=== PATIENT | male | born 1955 | race Caucasian/White ===

== ENCOUNTER → 2016-06-26 | Outpatient (CLI) | payer BC ==
[~2016-06-26] MED LIST: ASPI81TA28 PO; ATOR10TA82 PO; BUPR-79 PO; CHOL1TAB42 PO; CHOL20007 PO; CITA40TA12 PO; COEN100C7 PO; DSWCR TOP; FISHOIL PO; FLAXOIL4 PO; FLUT0.15 NAE; METF1000 PO; NITR1CAP16 PO; OMEG-112 PO; OMEG10007 PO; OXYC7.5T65 PO; PHEN-775 PO; SALI1SPR15 NAE; SITA100T3 PO; TURMERIC PO; saline nasal spray
--- NOTE | 2016-06-26 15:17 | DIAGNOSTIC IMAGING REPORT ---
CT HEAD WITHOUT CONTRAST (CT) CLINICAL HISTORY: Severe headache, paresthesias, dizziness, slurred speech. COMPARISON STUDY: No previous studies for comparison. TECHNIQUE: Axial CT of the brain is performed from the vertex to the skull base. IV contrast was not administered for this examination. CT DOSE: 614.27 mGy.cm FINDINGS: No intra or extra-axial mass lesions are visualized. There is no CT evidence of acute cortical infarction. There is no evidence of midline shift. There is no acute hemorrhage. No calvarial fractures are visualized. There are patchy subtle matter hypodensities likely on a small vessel basis. There is no evidence of pathologic ventricular dilatation. There is no evidence of acute sinusitis. There is a left maxilla sinus retention cyst. There are postsurgical changes present within the sinuses. IMPRESSION: No acute intracranial findings Electronically signed by: Juan Alberto Mayberry M.D. 06/26/2016 3:15 PM Dictated Date/Time: 06/26/2016 3:14 PM
== END | disposition home or self-care (01) ==
LOC: C.CTS 14:53
PROVIDERS: ATTEND Nurse Practitioner Family
DX: R51 Headache (principal); H53.8 Other visual disturbances; R20.2 Paresthesia of skin

== ENCOUNTER → 2016-07-04 | Outpatient (CLI) | payer BC ==
--- NOTE | 2016-07-04 12:06 | DIAGNOSTIC IMAGING REPORT ---
ULTRASOUND KIDNEYS AND BLADDER CLINICAL HISTORY: Hematuria. COMPARISON STUDY: Abdominal ultrasound dated 07/15/2012. TECHNIQUE: Real-time, grayscale, and color flow sonography of the kidneys and bladder is performed. Images are reviewed in the transverse and longitudinal planes. FINDINGS: Kidneys: The kidneys demonstrate minimal cortical thinning and are normal in echotexture. The right kidney measures 12.6 x 6.1 x 4.7 cm and the left kidney measures 13.6 x 6.5 x 6.1 cm. There is no hydronephrosis. Nonobstructing calculi are suggested on the left. There is no sonographic evidence of contour deforming renal mass lesion. No perinephric fluid is identified. Bladder: The prostate gland is enlarged measuring up to 5.5 cm. The bladder is decompressed and grossly unremarkable. Ureteral jets were not seen. Upper abdomen: Survey images of the liver show increased echotexture indicating steatosis. IMPRESSION: 1. There is no hydronephrosis. 2. Nonobstructing left renal calculi are noted. 3. Prostatomegaly. 4. The bladder was decompressed and not well evaluated. 5. Hepatic steatosis. Electronically signed by: Tim Yanez M.D. 07/04/2016 12:05 PM Dictated Date/Time: 07/04/2016 12:03 PM
== END | disposition home or self-care (01) ==
LOC: C.ULTR 11:18
PROVIDERS: ATTEND Nurse Practitioner Family
DX: R31.9 Hematuria, unspecified (principal); R20.0 Anesthesia of skin; N40.0 Benign prostatic hyperplasia without lower urinary tract symptoms; K76.0 Fatty (change of) liver, not elsewhere classified

== ENCOUNTER → 2016-07-28 | Outpatient (CLI) | payer BC ==
--- NOTE | 2016-07-28 16:20 | DIAGNOSTIC IMAGING REPORT ---
KUB HISTORY: Possible left renal stone. COMPARISON: Renal ultrasound 07/04/2016. FINDINGS: The bowel gas pattern is unremarkable. There are no dilated loops of small bowel to suggest an obstruction. The right renal shadow is mostly obscured by overlying bowel gas. However, no definite renal or calculi. No ureteral calculi. No pneumoperitoneum or pneumatosis. Left pelvic calcifications likely represent phleboliths. IMPRESSION: No renal or ureteral stones. Electronically signed by: Ben Beaulieu M.D. 07/28/2016 4:19 PM Dictated Date/Time: 07/28/2016 4:16 PM
== END | disposition home or self-care (01) ==
LOC: C.RAD 15:38
PROVIDERS: ATTEND Urology
DX: N20.0 Calculus of kidney (principal)

== ENCOUNTER → 2016-09-22 | Outpatient (CLI) | payer BC ==
[~2016-09-22] MED LIST changes: -ATOR10TA82 PO; +ATOR10TA88 PO
[2016-09-22 17:21] LABS: BLOOD UREA NITROGEN 16 mg/dl (7-18); BUN/CREATININE RATIO 15.7 (10-20); CREATININE 0.99 mg/dl (0.60-1.40)
[2016-09-23 05:57] LABS: ESTIMATED AVERAGE GLUCOSE 206 mg/dl; HA1C FLAG Normal (Normal)
== END | disposition home or self-care (01) ==
LOC: C.LAB 15:30
PROVIDERS: ATTEND Nurse Practitioner Family
DX: E11.9 Type 2 diabetes mellitus without complications (principal); R31.9 Hematuria, unspecified; N20.0 Calculus of kidney

== ENCOUNTER → 2016-09-23 | Outpatient (CLI) | payer BC ==
[~2016-09-23] MED LIST changes: +OPTIRAY 320 IV PRN
--- NOTE | 2016-09-23 15:15 | DIAGNOSTIC IMAGING REPORT ---
CT ABD/PELVIS COMBO CLINICAL HISTORY: R31.9 hematuria COMPARISON STUDY: None. TECHNIQUE: Unenhanced images were obtained through the abdomen and pelvis. The patient was injected with 50 cc Optiray 320. After 5 minute delay, the patient was rescanned in a dynamic helical fashion during the additional administration of 43 cc of Optiray 320. A dose lowering technique was utilized adhering to the principles of ALARA. CT DOSE: 2217.30 mGycm FINDINGS: Lower chest: There are dependent atelectatic changes. Liver: The contrast-enhanced liver is normal in size, contour, and attenuation. There is no intrahepatic biliary ductal dilatation. The hepatic veins and portal veins are patent. Gallbladder: Unremarkable. Spleen: Normal in size and attenuation. Pancreas: Unremarkable. Adrenal glands: Unremarkable. Kidneys: No renal, ureteral, or bladder calculi are visualized. There is a 7 mm hypodense lower pole left renal lesion, likely representing a cyst. There is a 6 mm mid pole hypodense left renal lesion likely representing a cyst. No solid renal masses are visualized. No collecting system lesions are visualized. There is mild renal sinus lipomatosis. No ureteral lesions are visualized. Bowel: There are no transition zones indicate bowel obstruction. The appendix appears normal. There is no acute diverticulitis. Peritoneum: There is no intraperitoneal free air or abdominal ascites. Vasculature: The abdominal aorta is normal in course and caliber. Adenopathy: None. Pelvic viscera: The prostate is mildly enlarged Skeletal structures: No destructive osseous lesions are seen. IMPRESSION: 1. No renal, ureteral, or bladder calculi identified 2. No solid renal masses identified 3. No collecting system or ureteral lesions identified. Electronically signed by: Juan Alberto Mayberry M.D. 09/23/2016 3:14 PM Dictated Date/Time: 09/23/2016 3:08 PM
== END | disposition home or self-care (01) ==
LOC: C.CTS 14:11
PROVIDERS: ATTEND Nurse Practitioner Adult Health
DX: R31.9 Hematuria, unspecified (principal)

== ENCOUNTER → 2016-09-25 | Outpatient (CLI) | payer BC ==
[~2016-09-25] MED LIST changes: -OPTIRAY 320 IV PRN
[2016-09-25 09:09] LABS: BLOOD UREA NITROGEN 14 mg/dl (7-18); BUN/CREATININE RATIO 14.6 (10-20); CREATININE 0.98 mg/dl (0.60-1.40)
== END | disposition home or self-care (01) ==
LOC: C.LAB 08:19
PROVIDERS: ATTEND Nurse Practitioner Adult Health
DX: N20.0 Calculus of kidney (principal); R31.9 Hematuria, unspecified

== ENCOUNTER 2016-10-30 05:18 | Day surgery (SDC) | payer BC ==
[2016-10-15 09:04] VITALS: BMI 32.0
--- NOTE | 2016-10-15 09:39 | PAT Medication Instructions ---
Service Date Oct 15, 2016. Current Home Medication List Aspirin (Aspirin Ec), 81 MG PO HS Atorvastatin (Lipitor), 10 MG PO HS Bupropion (Wellbutrin Sr), 150 MG PO QAM Cholecalciferol (Vitamin D3), 1 TAB PO BID Citalopram Hydrobromide (Celexa), 40 MG PO HS Coenzyme Q10 (Ubidecarenone) (Coq10), 200 MG PO BID Desonide 0.05% (Desowen 0.05%), 1 APPLN TOP PRN Fish Oil (Lingle-3), 2 CAP PO QPM Fish Oil (Lingle-3), 1 CAP PO QAM Flaxseed (Linseed) (Flax Seed Oil), 30 ML PO BID Fluticasone Propionate (Nasal) (Flonase Allergy Relief), 1 SPRAYS RONALD BID Metformin Hcl (Glucophage), 1,000 MG PO BID Saline (Saline Nasal [place] Infant), 1-2 SPRY RONALD BID Sitagliptin Phosphate (Januvia), 100 MG PO QAM [Turmeric], 1 TAB PO BID Medication Instructions For Your Scheduled Surgery - Check with surgeon for instructions: Aspirin (Aspirin Ec), 81 MG PO HS - Hold the following medications 2 weeks prior to surgery: [Turmeric], 1 TAB PO BID Flaxseed (Linseed) (Flax Seed Oil), 30 ML PO BID Fish Oil (Lingle-3), 2 CAP PO QPM Fish Oil (Lingle-3), 1 CAP PO QAM Coenzyme Q10 (Ubidecarenone) (Coq10), 200 MG PO BID - Hold the following medications 24 hours prior to surgery: Desonide 0.05% (Desowen 0.05%), 1 APPLN TOP PRN - Hold the following medications 48 hours prior to surgery: Metformin Hcl (Glucophage), 1,000 MG PO BID - Hold the following medications the morning of surgery: Sitagliptin Phosphate (Januvia), 100 MG PO QAM Cholecalciferol (Vitamin D3), 1 TAB PO BID - Take the following medications the morning of surgery with a sip of water: Saline (Saline Nasal [place] ), 1-2 SPRY RONALD BID Fluticasone Propionate (Nasal) (Flonase Allergy Relief), 1 SPRAYS RONALD BID Bupropion (Wellbutrin Sr), 150 MG PO QAM - Take the following medications as scheduled the night before surgery: Saline (Saline Nasal [place] ), 1-2 SPRY RONALD BID Fluticasone Propionate (Nasal) (Flonase Allergy Relief), 1 SPRAYS RONALD BID Citalopram Hydrobromide (Celexa), 40 MG PO HS Cholecalciferol (Vitamin D3), 1 TAB PO BID Atorvastatin (Lipitor), 10 MG PO HS If you have any questions please call us at [phone] or [phone] or [phone]
[2016-10-15 10:24] LABS: BASO % 0.8 %; BASO ABS # 0.05 K/uL (0-0.2); COMPLETE YES; EOS % 2.3 %; HEMATOCRIT 40.8 % (42-52); IG% 0.2 %; LYMPH % 45.2 %; LYMPH ABS # 2.92 K/uL (1.2-3.4); MEAN CELL VOLUME 85.5 fL (80-100); MEAN CORPUSCULAR HEMOGLOBIN 28.9 pg (25-34); MEAN CORPUSCULAR HGB CONC 33.8 g/dl (32-36); MEAN PLATELET VOLUME 9.5 fL (7.4-10.4); MONO % 7.9 %; NEUT % 43.6 %; PLATELET COUNT 267 K/uL (130-400); RED BLOOD COUNT 4.77 M/uL (4.7-6.1); WHITE BLOOD COUNT 6.46 K/uL (4.8-10.8)
[2016-10-15 10:25] LABS: URINE APPEARANCE CLEAR (CLEAR); URINE BILIRUBIN NEG (NEG); URINE COLOR YELLOW; URINE NITRITE NEG (NEG); URINE SPECIFIC GRAVITY 1.013 (1.000-1.030); UROBILINOGEN NEG (NEG)
[2016-10-15 10:30] LABS: MANUAL MICROSCOPIC REQUIRED? NO; REVIEW REQ? NO
--- NOTE | 2016-10-15 10:31 | DIAGNOSTIC IMAGING REPORT ---
CHEST PREADMISSION(PA/LAT) HISTORY: 61 years-old Male PAT preadmission exam. No acute chest complaints. COMPARISON: Chest radiograph 07/15/2012 TECHNIQUE: PA and lateral views of the chest FINDINGS: Cardiomediastinal and hilar silhouettes are within normal limits. There is no pneumothorax, pleural effusion or focal airspace consolidation. No overt pulmonary edema. The bones are grossly intact. Multilevel endplate spurring of the thoracic spine. IMPRESSION: No acute cardiopulmonary process. The above report was generated using voice recognition software. It may contain grammatical, syntax or spelling errors. Electronically signed by: Vazquez Dill M.D. 10/15/2016 10:30 AM Dictated Date/Time: 10/15/2016 10:29 AM
[2016-10-15 12:51] LABS: BUN/CREATININE RATIO 13.1 (10-20); CREATININE 0.99 mg/dl (0.60-1.40); POTASSIUM 4.2 mmol/L (3.5-5.1)
[~2016-10-30] VITALS: Ht 180.3 cm; Wt 107.7 kg
[~2016-10-30 05:18] MED LIST changes: -CHOL1TAB42 PO; -NITR1CAP16 PO; -OMEG-112 PO; -OXYC7.5T65 PO; -PHEN-775 PO; -saline nasal spray
[2016-10-30] MEDS ORDERED: saline nasal spray (05:55)
[2016-10-30 05:58] VITALS: BP 136/82; PULSE 66; TEMP 36.7; O2SAT 95; Ht 180.3 cm; Wt 107.7 kg
[2016-10-30] MEDS ORDERED: MITOMYCIN FOR INJ 40 MG in SYRINGE 40 ML IR SCH (06:00)
[2016-10-30] MEDS ORDERED: CEFAZOLIN 2000 MG/60 ML D5W IV SCH (06:00)
[2016-10-30] MEDS ORDERED: LACTATED RINGER'S 1000ML 1,000 ML IV SCH (06:00)
[2016-10-30] MEDS ORDERED: MIDAZOLAM HCL 1 MG/ML 2ML VIAL ONE ×2 (06:35→08:10)
[2016-10-30] MEDS ORDERED: FENTANYL CITRATE INJ 50 MCG/1 ML 2 ML VIAL ONE (06:35)
[2016-10-30] MEDS ORDERED: ONDANSETRON INJ 2 MG/ML 2 ML VIAL ONE (06:36)
[2016-10-30] MEDS ORDERED: PROPOFOL IV EMULSION 10 MG/ML 20 ML VIAL IV ONE ×2 (06:36→07:29)
--- NOTE | 2016-10-30 06:54 | History & Physical Bridge Note ---
H&P Re-Evaluation Bridge Note: I have examined the patient, reviewed the History & Physical and in the interval since the performance of the History & Physical I have noted the following changes of clinical significance: No changes noted
[2016-10-30] MEDS ORDERED: EpHEDrine SULFATE INJ 50 MG/ML AMP IV PRN (07:45)
[2016-10-30] MEDS ORDERED: MEPERIDINE HCL 25 MG/ML CARP IV PRN (07:45)
[2016-10-30] MEDS ORDERED: HYDROmorphone INJ 1 MG/ML SYR IV PRN (07:45)
[2016-10-30] MEDS ORDERED: ATROPINE SULFATE 0.1 MG/ML 5ML SYR IV PRN (07:45)
[2016-10-30] MEDS ORDERED: ONDANSETRON INJ 2 MG/ML 2 ML VIAL IV PRN (07:45)
[2016-10-30] MEDS ORDERED: LABETALOL HCL IV 5 MG/ML 20ML IV PRN (07:45)
[2016-10-30] MEDS ORDERED: OXYC7.5T65 PO (08:02)
[2016-10-30] MEDS ORDERED: PHEN-775 PO (08:02)
[2016-10-30] MEDS ORDERED: NITR1CAP16 PO (08:02)
--- NOTE | 2016-10-30 08:05 | Discharge Instructions ---
Discharge Instructions Date of Service Oct 30, 2016. Admission Reason for Admission: Bladder Cancer Discharge Discharge Diagnosis / Problem: Bladder tumor s/p biopsy / fulguration Discharge Goals Goal(s): Improve disease control, Diagnostic testing, Therapeutic intervention Activity Recommendations Activity Limitations: as noted below Lifting Limitations: no more than 25 pounds, gradually increase as tolerated Exercise/Sports Limitations: rest today, gradually increase as tolerated May Resume Sexual Activity: after one week Shower/Bathe: no limitations Driving or Machine Use: resume 1 day after discharge . Instructions / Follow-Up Instructions / Follow-Up In office as scheduled for pathology discussion Discharge Diet Recommended Diet: Regular Diet (good fluid intake) Procedures Procedures Performed: Cystoscopy, bladder biopsy, roller ball fulgeration, instillation of Mitomycin C Pending Studies Studies pending at discharge: yes List of pending studies: Pathology report Laboratory Results Hemoglobin A1c Test 09/22/16 16:02 Range/Units Estimated Average Glucose 206 mg/dl Hemoglobin A1c 8.8 H 4.5-5.6 % Medical Emergencies . Who to Call and When: Medical Emergencies: If at any time you feel your situation is an emergency, please call 911 immediately. . Non-Emergent Contact Non-Emergency issues call your: Urologist Call Non-Emergent contact if: you have a fever, temperature is above 101, your pain is not controlled, your pain is worsening, your pain is unusual for you, your pain is concerning you, you have any medication questions . . "Provider Documentation" section prepared by Cliff Wheatley. . VTE Core Measure Inpt VTE Proph given/why not?: SCD's [place] Drug Monitoring Program Search Results: patient reviewed within database, no issues identified
--- NOTE | 2016-10-30 08:10 | [facility] Operative Report ---
Operative Report Operative Date Oct 30, 2016. Pre-Operative Diagnosis Bladder lesion Post-Operative Diagnosis Same as preop Procedure(s) Performed Cystoscopy, bladder biopsy, roller ball fulguration, instillation of Mitomycin C Surgeon Dr. Michelle Wheatley Brewery Worker Surgeon(s) NA Estimated Blood Loss 0 ml Findings Area of bladder tumor and abnormal mucosa, ~ 2 x 3 cm on R anterior wall, ~ 11 oclock position near bladder neck, no residual tumor after completion. 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 Please see H&P for further details. He is being brought in today for biopsy, fulguration and instillation of mitomycin-C. Intravenous Ancef was provided for antibiotic coverage due to a questionable history ciprofloxacin allergy. SCDs used for DVT prophylaxis. Description of Procedure Patient was properly identified and brought to the operative suite after identification of appropriate consent in the chart. General anesthesia with laryngeal mask was initiated and patient was prepped and draped in standard fashion for this procedure. Full timeout procedure was followed. 22 Albanian rigid cystoscope was passed into the bladder direct visualization. Some uneven lateral lobe enlargement of the prostate, obstructive was appreciated as noted on office cystoscopy. Inside the bladder at the 11 o'clock position for about 2 3 cm total involvement papillary masses and abnormal vellous mucosa was appreciated. Cold cup biopsies of the papillary lesions was sent as bladder masses. Biopsy was repeated of the abnormal mucosa and sent separately. After this was complete bladder was drained. 26 Albanian resectoscope was introduced using a visual obturator and a rollerball was used to completely fulgurate any areas of borderline or abnormal mucosa. After this was complete no residual areas of abnormality were appreciated. No bladder perforation or injury was noted. Resectoscope was removed and an 18 Albanian Catherine catheter was placed. Mitomycin C was not available the operating room and therefore the catheter was placed to gravity drainage. Mitomycin to be instilled in the every room 2 hours prior to trial of void. Patient tolerated the procedure well without complaints or difficulties or complications. Follow-up care: Patient's provided with a prescription for nitrofurantoin, Percocet and Pyridium. Trial void prior to discharge. Outpatient appointment for pathology discussion is reviewed. Patient to contact our service should he note any fevers, chills, nausea, vomiting or other difficulties in the postoperative period I attest to the content of the Intraoperative Record and any orders documented therein. Any exceptions are noted below.
[2016-10-30] MEDS ORDERED: OXYCODONE/ACETAMINOPHEN 5-325 TAB PO PRN (08:15)
[2016-10-30] MEDS ORDERED: PHENAZOPYRIDINE HCL 200 MG TAB PO PRN (08:15)
[2016-10-30] MEDS: FENTANYL CITRATE INJ 50 MCG/1 ML 2 ML VIAL IV PRN ×2 (08:16→08:30)
--- NOTE | 2016-10-30 09:00 | Anesthesiology Progress Note ---
Anesthesia Post Op Note Date & Time Oct 30, 2016 at 08:59 Vital Signs Pain Intensity: 4 Vital Signs Past 12 Hours Date Time Temp Pulse Resp B/P (MAP) Pulse Ox O2 Delivery O2 Flow Rate FiO2 10/30/16 08:40 36.4 68 19 112/73 93 Room Air 10/30/16 08:30 71 19 115/67 94 Room Air 10/30/16 08:20 73 19 117/66 94 Room Air 10/30/16 08:10 74 20 103/69 98 Oxymask 10 10/30/16 08:00 75 23 126/75 100 Oxymask 10 10/30/16 07:51 36.4 100 18 163/100 100 Oxymask 10 10/30/16 05:58 36.7 66 16 136/82 (100) 95 Room Air Notes Mental Status: alert / awake / arousable, participated in evaluation Pt Amnestic to Procedure: Yes Nausea / Vomiting: adequately controlled Pain: adequately controlled Airway Patency, RR, SpO2: stable & adequate BP & HR: stable & adequate Hydration State: stable & adequate Anesthetic Complications: no major complications apparent
[2016-10-30 09:05] VITALS: BP 134/76; PULSE 69; TEMP 36.5; O2SAT 93
[2016-10-30 09:35] VITALS: BP 112/66; PULSE 69; TEMP 36.6; O2SAT 96
[2016-10-30 09:56] VITALS: BP 134/76; PULSE 68; PULSE 69; TEMP 36.5; O2SAT 93
[2016-10-30 10:10] VITALS: BP 113/63; PULSE 69; O2SAT 96
[2016-10-30 10:36] VITALS: BP 109/65; PULSE 70; O2SAT 95
== END 2016-10-30 11:45 | disposition home or self-care (01) ==
LOC: C.ACU 05:18
PROVIDERS: ATTEND Urology
DX: C67.9 Malignant neoplasm of bladder, unspecified (principal); N40.0 Benign prostatic hyperplasia without lower urinary tract symptoms; K21.0 Gastro-esophageal reflux disease with esophagitis; E11.9 Type 2 diabetes mellitus without complications; E78.5 Hyperlipidemia, unspecified; I10 Essential (primary) hypertension; E03.9 Hypothyroidism, unspecified; Z87.891 Personal history of nicotine dependence; Z80.1 Family history of malignant neoplasm of trachea, bronchus and lung

== ENCOUNTER → 2016-11-12 | Outpatient (CLI) | payer BC ==
[~2016-11-12] MED LIST changes: +OXYC7.5T65 PO; -SALI1SPR15 NAE; +saline nasal spray
== END | disposition home or self-care (01) ==
LOC: C.LABSPEC 10:59
PROVIDERS: ATTEND Urology
DX: N40.0 Benign prostatic hyperplasia without lower urinary tract symptoms (principal); C67.9 Malignant neoplasm of bladder, unspecified

== ENCOUNTER → 2016-11-26 | Outpatient (CLI) | payer BC ==
--- NOTE | 2016-11-26 13:53 | DIAGNOSTIC IMAGING REPORT ---
R HIP UNILATERAL 2 VIEWS CLINICAL HISTORY: PAIN IN R HIP COMPARISON: None. DISCUSSION: No fractures or dislocations are visualized. There are no erosive or destructive changes. IMPRESSION: Normal conventional radiographic evaluation of the right hip for age Electronically signed by: Juan Alberto Mayberry M.D. 11/26/2016 1:51 PM Dictated Date/Time: 11/26/2016 1:51 PM
--- NOTE | 2016-11-26 13:54 | DIAGNOSTIC IMAGING REPORT ---
L-SPINE MIN 4 VIEWS ROUTINE CLINICAL HISTORY: Back and right hip pain COMPARISON STUDY: MRI the lumbar spine dated 07/21/2007 FINDINGS: No fractures or subluxations are visualized. There are mild multilevel degenerative changes. No destructive lesions are evident on conventional radiographic imaging. IMPRESSION: Mild degenerative change. No fractures, subluxations, or destructive lesions are visualized. Electronically signed by: Juan Alberto Mayberry M.D. 11/26/2016 1:53 PM Dictated Date/Time: 11/26/2016 1:52 PM
--- NOTE | 2016-11-26 13:54 | DIAGNOSTIC IMAGING REPORT ---
L HIP UNILATERAL 2 VIEWS HISTORY: 61 years-old Male PAIN IN R HIP acute bilateral hip pain COMPARISON: Right hip radiographs of same day TECHNIQUE: 2 views of the left hip FINDINGS: Mild degenerative changes of the left femoral acetabular joint. No acute fracture or dislocation. Imaged left hemipelvis is intact. No opaque foreign body. IMPRESSION: Mild degenerative changes of the left hip without acute fracture or dislocation. The above report was generated using voice recognition software. It may contain grammatical, syntax or spelling errors. Electronically signed by: Vazquez Dill M.D. 11/26/2016 1:52 PM Dictated Date/Time: 11/26/2016 1:51 PM
== END | disposition home or self-care (01) ==
LOC: C.RADBC 12:46
PROVIDERS: ATTEND Nurse Practitioner Family
DX: M25.551 Pain in right hip (principal); M16.12 Unilateral primary osteoarthritis, left hip; M47.896 Other spondylosis, lumbar region

== ENCOUNTER 2021-11-22 14:25 | Observation (INO) ==
[2021-11-22 14:55] LABS: Basophils # (auto) 0.08 K/uL (0-0.2); Basophils % (auto) 1.1 %; Eosinophils # (auto) 0.14 K/uL (0-0.50); Eosinophils % (auto) 1.9 %; Hematocrit (blood only) 39.8 % (40.1-51.0); Hemoglobin 13.8 g/dl (14.0-18.0); Immature Granulocytes # (auto) 0.04 K/uL (0.00-0.02); Immature Granulocytes % (auto) 0.5 %; Lymphocytes # (auto) 3.56 K/uL (1.2-3.4); Lymphocytes % (auto) 47.1 %; Mean Corpuscular Hemoglobin 29.2 pg (25.0-34.0); Mean Corpuscular Hgb Conc 34.7 g/dL (32.0-36.0); Mean Corpuscular Volume 84.1 fL (80.0-100.0); Mean Platelet Volume 9.3 fL (9.4-12.4); Monocytes # (auto) 0.75 K/uL (0.24-0.82); Monocytes % (auto) 9.9 %; Neutrophils # (auto) 2.99 K/uL (1.4-6.5); Neutrophils % (auto) 39.5 %; Platelet Count 310 K/uL (130-400); RDW Coefficient of Variation 12.8 % (11.5-14.5); RDW Standard Deviation 39.2 fL (36.4-46.3); Red Blood Count 4.73 M/uL (4.63-6.08); White Blood Count 7.56 K/ul (4.8-10.8)
--- NOTE | 2021-11-22 15:06 | XRay Report ---
XR chest 2V PA/lateral CLINICAL HISTORY: Atypical chest pain. COMPARISON STUDY: Chest radiograph November 21, 2020. Chest CT December 28, 2017. FINDINGS: Lung volumes are normal. Lungs are clear. There is no pneumothorax or pleural effusion. Car diac size is normal. Mediastinal contours are normal. There is no evidence for pulmonary edema. Azygo s fissure is incidentally noted. IMPRESSION: No acute cardiopulmonary findings. ACT 112: Negative or not required by law. Electronically signed by: Ced Sparks M.D. 11/22/2021 3:04 PM
[2021-11-22 15:10] LABS: Partial Thromboplastin Ratio 0.8; Partial Thromboplastin Time 23.1 Seconds (21.0-31.0); Prothrombin Time 10.8 Seconds (9.0-12.0)
[2021-11-22 15:34] LABS: Albumin Globulin Ratio 1.4 (0.9-2); Albumin Level 4.4 gm/dl (3.4-5.0); BUN Creatinine Ratio 15.9 (10-20); Bilirubin,Total 0.3 mg/dl (0.2-1.0); Calcium 9.8 mg/dl (8.5-10.1); Creatinine Clr Calc Pharmacy 85.3 ml/min; Est GFR (African American) 84.6 ml/min; Globulin 3.1 gm/dl (2.5-4.0); Total Protein 7.5 gm/dl (6.0-8.3)
[2021-11-22 15:37] LABS: Troponin I High Sensitivity 4.1 pg/ml (0-20)
[2021-11-22] MEDS ORDERED: ASPIRIN CHEW 324 MG PO STA (16:33)
--- NOTE | 2021-11-22 16:38 | Emergency Department Note ---
Impression & Plan Chest pain, Diabetes mellitus ED Provider Note Provider: Alexei Guzman MD DATE OF SERVICE: 11/22/2021 CHIEF COMPLAINT: Intermittent chest discomfort and shortness of breath HISTORY OF PRESENT ILLNESS: Patient is a 66-year-old gentleman history of diabetes on insulin, BPH, and hyperlipidemia presenting today referred by his primary care doctor due to intermittent chest discomfort and associated dyspnea on exertion of the past 2 months worsening. Had worsened pain last night. Talked with his doctor and seen this afternoon and there was some questionable EKG changes reported on the EKG there. Reports minimal discomfort at this time but some slight shortness of breath. Over the last year or 2 has gained some weight. Denies any leg swelling. Denies infectious symptoms or fever. Reports he is having some intermittent headache over the last several years and thinks this may be related to stress related to work as well. Denies a personal cardiac history. States its been several years but he did previously have a stress test that was reassuring with Dr. Loredo. Does not take aspirin normally. Referred by his primary doctor due to concerns regarding EKG and his exertional chest discomfort. REVIEW OF SYSTEMS: A total of 10 review of systems was obtained and negative exc ept as stated above in the HPI. PAST MEDICAL HISTORY: As noted above MEDICATIONS: Reviewed home medications FMH: No reported cardiac history by the patient SOCIAL HISTORY: , very distant former smoker PHYSICAL EXAM: GENERAL: alert and oriented in no acute distress on stretcher Head: normocephalic and atraumatic EYES: No injection, discharge or icterus. NECK: Trachea midline. LUNGS: Airway patent. No retractions. Breath sounds clear with good air entry bilaterally. HEART: Regular rate and rhythm. No chest wall tenderness ABDOMEN: Soft and non-tender, without guarding or rebound. SKIN: Acyanotic, warm, dry, without rashes EXTREMITIES: Without swelling, tenderness or deformity NEUROLOGICAL: No focal deficits. No aphasia. No facial droop or slurred speech. Ambulatory. EK bpm normal sinus rhythm. No PVC or PAC. No acute ST segment elevation or depression with a QTC of 444 CONTINUOUS CARDIAC MONITORING: was ordered and showed a heart rate of 70s-90s bpm in normal sinus rhythm Patient's laboratory studies and imaging reviewed. Differential includes Cardiac ischemia, aortic dissection, pulmonary embolism, pneumothorax, pneumonia, pericarditis, myocarditis, esophageal rupture, GERD, cholecystitis, pancreatitis, musculoskeletal, as well as other pathologies. IMPRESSION/MEDICAL DECISION MAKING: Patient with some concerning history of some worsening chest discomfort and shortness of breath with exertion over the last several months. Some peak last night. Reported some EKG issues at primary care office but do not have it in front of me here. EKG here is reassuring. Troponin without significant elevation here. X-ray and other blood work without severe abnormality. Patient with significant risk factors including obesity and diabetes. Distantly had a stress test. Minimal discomfort now. Will give aspirin. Discussed with patient and at bedside extensively findings. Question if he may be experiencing some anginal type pain as he does have some radiation of the pain to the jaw and arm last night. Discussed with him further observation overnight for cardiac evaluation and he was agreeable to this. Hospitalist was contacted. DIAGNOSIS: Chest pain DISPOSITION: Hospitalist will evaluate Patient was agreeable with this plan. Past Med/Surg History Medical History (Updated 11/22/21 @ 22:54 by Alexei Guzman M.D.) Bladder cancer diagnosed 11/2016--s/p BCG treatments Chronic back pain Depression Diabetes mellitus IDDM Hematuria History of COVID-19 diagnosed 11/2019--muscle aches/headaches History of nephrolithiasis Testicular pain Surgical History H/O hemorrhoidectomy History of colonoscopy History of hand surgery right hand pinky History of sinus surgery x3 History of wisdom tooth extraction S/P bladder tumor excision with fulguration Status post bilateral hernia repair Family History Other No significant family history Denies family history of No family history of adverse response to anesthesia No family history of bleeding disorder Heart disease Allergies Cancer Hypertension Stroke Asthma Social History Smoking Status: Former smoker Second Hand Exposure: No; Hx Alcohol Use: Yes Alcohol type: wine and hard liquor Hx Substance Use: No Preferred Language: Croatian Communication Ability: Effective Visual Impairment: No Limitations Hearing Ability: Normal Lift Operator Required: No Beliefs That Will Affect Care: None marital status: Current Living Situation: Spouse Current Living Situation Comment: current occupational status: employed current occupation: Machine Package Sealer Feels Safe at Home: Yes Assistive Devices: Glasses and Hearing Aid - Bilateral Allergies Allergies Allergy/AdvReac Type Severity Reaction Status Date / Time alfuzosin Allergy Mild ITCHING Verified 11/22/21 17:43 lidocaine Allergy Mild TACHYCARDIA Verified 11/22/21 17:43 tamsulosin Allergy Mild ITCHING Verified 11/22/21 17:43 amoxicillin AdvReac Mild NAUSEA AND Verified 11/22/21 17:43 VOMITING ciprofloxacin AdvReac Mild NAUSEA ND Verified 11/22/21 17:43 VMITING clavulanic acid AdvReac Mild NAUSEA AND Verified 11/22/21 17:43 VOMITING Home Meds Home Medications Medication Instructions Recorded Confirmed bupropion HCl 150 mg 24 hr tablet, 150 mg PO QAM 12/08/18 11/22/21 extended release flaxseed oil 1,000 mg capsule 1,000 mg PO QAM 12/08/18 11/22/21 turmeric 400 mg capsule 400 mg PO DAILY 12/08/18 11/22/21 insulin glargine 100 unit/mL (3 15 - 18 unit subcut HS 02/16/19 11/22/21 mL) subcutaneous pen (Basaglar KwikPen U-100 Insulin) insulin aspart U-100 100 unit/mL 0 sliding scale dose subcut AC 05/26/19 11/22/21 (3 mL) subcutaneous pen (Novolog sliding scale Flexpen U-100 Insulin aspart) cholecalciferol (vitamin D3) 125 5,000 unit PO 3XWK 11/17/19 11/22/21 mcg (5,000 unit) tablet (Vitamin D3) cholecalciferol (vitamin D3) 125 10,000 unit PO 4XWK 11/22/21 11/22/21 mcg (5,000 unit) tablet (Vitamin D3) citalopram 20 mg tablet 20 mg PO DAILY 11/22/21 11/22/21 omega 4-vsv-kpr-fish oil 300 1 cap PO DAILY 11/22/21 11/22/21 mg-1,000 mg capsule (Fish Oil) Previous Rx's Medication Instructions Recorded dutasteride 0.5 mg capsule 0.5 mg PO DAILY #90 caps 06/06/20 (Avodart) Results & Data (ED) Vital Signs Vital Signs - 24 hr 11/22/21 14:27 11/22/21 16:13 11/22/21 16:13 Temperature 36.9 C Temperature Source Temporal Artery Scan Pulse Rate 89 Pulse Rate [Right Finger] 93 H Respiratory Rate 20 20 Respiratory Effort / Characteristics Spontaneous Non-Labored Respiratory Depth Normal Normal Respiratory Pattern Regular Blood Pressure 122/83 Blood Pressure [Right Arm] 176/98 H Blood Pressure Mean 96 Blood Pressure Mean [Right Arm] 124 Blood Pressure Position Sitting Pulse Oximetry 95 99 99 Oxygen Delivery Method Room Air Room Air Room Air Sepsis Recent Fever Within 48 Hours No Sepsis New/Unexplained Change in Mental Status No Sepsis Action Taken by Nursing No Action Required Laboratory Data Result diagrams: 11/22/21 14:33 11/22/21 14:33 Lab Results 11/22/21 11/22/21 11/22/21 Range/Units 14:33 14:33 14:33 WBC 7.56 (4.8-10.8) K/ul RBC 4.73 (4.63-6.08) M/uL Hgb 13.8 L (14.0-18.0) g/dl Hct 39.8 L (40.1-51.0) % MCV 84.1 (80.0-100.0) fL MCH 29.2 (25.0-34.0) pg MCHC 34.7 (32.0-36.0) g/dL RDW Std Deviation 39.2 (36.4-46.3) fL RDW Coeff of Tucker 12.8 (11.5-14.5) % Plt Count 310 (130-400) K/uL MPV 9.3 L (9.4-12.4) fL Immature Gran % (Auto) 0.5 % Neut % (Auto) 39.5 % Lymph % (Auto) 47.1 % [place] % (Auto) 9.9 % Eos % (Auto) 1.9 % Baso % (Auto) 1.1 % Neut # (Auto) 2.99 (1.4-6.5) K/uL Lymph # (Auto) 3.56 H (1.2-3.4) K/uL [place] # (Auto) 0.75 (0.24-0.82) K/uL Eos # (Auto) 0.14 (0-0.50) K/uL Baso # (Auto) 0.08 (0-0.2) K/uL Immature Gran # (Auto) 0.04 H (0.00-0.02) K/uL PT 10.8 (9.0-12.0) Seconds INR 1.0 (0.9-1.1) APTT 23.1 (21.0-31.0) Seconds PTT Ratio 0.8 D-Dimer (0-500) ug/L FEU Sodium 139 (136-145) mmol/L Potassium 4.0 (3.5-5.1) mmol/L Chloride 102 (98-107) mmol/L Carbon Dioxide 29 (21-32) mmol/L Anion Gap 8 (3-11) BUN 17 (6-23) mg/dl Creatinine 1.07 (0.6-1.4) mg/dl Est Cr Clr Drug Dosing 85.3 ml/min Est GFR ( Amer) 84.6 ml/min Est GFR (Non-Af Amer) 73.0 ml/min BUN/Creatinine Ratio 15.9 (10-20) Glucose 167 H (70-99(Fasting)) mg/dl Calcium 9.8 (8.5-10.1) mg/dl Total Bilirubin 0.3 (0.2-1.0) mg/dl AST 14 (13-39) U/L ALT 15 (7-52) U/L Alkaline Phosphatase 54 (34-104) U/L Troponin I High Sens 4.1 (0-20) pg/ml Total Protein 7.5 (6.0-8.3) gm/dl Albumin 4.4 (3.4-5.0) gm/dl Globulin 3.1 (2.5-4.0) gm/dl Albumin/Globulin Ratio 1.4 (0.9-2) SARS-CoV-2, RNA, NAAT (NEGATIVE) 11/22/21 11/22/21 Range/Units 14:33 16:48 WBC (4.8-10.8) K/ul RBC (4.63-6.08) M/uL Hgb (14.0-18.0) g/dl Hct (40.1-51.0) % MCV (80.0-100.0) fL MCH (25.0-34.0) pg MCHC (32.0-36.0) g/dL RDW Std Deviation (36.4-46.3) fL RDW Coeff of Tucker (11.5-14.5) % Plt Count (130-400) K/uL MPV (9.4-12.4) fL Immature Gran % (Auto) % Neut % (Auto) % Lymph % (Auto) % [place] % (Auto) % Eos % (Auto) % Baso % (Auto) % Neut # (Auto) (1.4-6.5) K/uL Lymph # (Auto) (1.2-3.4) K/uL [place] # (Auto) (0.24-0.82) K/uL Eos # (Auto) (0-0.50) K/uL Baso # (Auto) (0-0.2) K/uL Immature Gran # (Auto) (0.00-0.02) K/uL PT (9.0-12.0) Seconds INR (0.9-1.1) APTT (21.0-31.0) Seconds PTT Ratio D-Dimer 480 (0-500) ug/L FEU Sodium (136-145) mmol/L Potassium (3.5-5.1) mmol/L Chloride (98-107) mmol/L Carbon Dioxide (21-32) mmol/L Anion Gap (3-11) BUN (6-23) mg/dl Creatinine (0.6-1.4) mg/dl Est Cr Clr Drug Dosing ml/min Est GFR ( Amer) ml/min Est GFR (Non-Af Amer) ml/min BUN/Creatinine Ratio (10-20) Glucose (70-99(Fasting)) mg/dl Calcium (8.5-10.1) mg/dl Total Bilirubin (0.2-1.0) mg/dl AST (13-39) U/L ALT (7-52) U/L Alkaline Phosphatase (34-104) U/L Troponin I High Sens (0-20) pg/ml Total Protein (6.0-8.3) gm/dl Albumin (3.4-5.0) gm/dl Globulin (2.5-4.0) gm/dl Albumin/Globulin Ratio (0.9-2) SARS-CoV-2, RNA, NAAT NEGATIVE (NEGATIVE) Administered Medications Enoxaparin Sodium (Enoxaparin Inj 40 Mg/0.4 Ml Syr) 40 mg SQ Q24H [facility] Stop: 12/22/21 19:44 Last Admin: 11/22/21 21:14 Dose: 40 mg Documented By: APRIL Insulin Aspart (Insulin Aspart Per Unit) 0 units SC ACHS CORKY Stop: 12/22/21 20:59 Last Admin: 11/22/21 21:15 Dose: 2 units Documented By: TMD Co-signed By: MANUEL Insulin Glargine (Lantus Per Unit Charge) 8 units SQ BID CORKY Stop: 12/22/21 20:59 Last Admin: 11/22/21 21:15 Dose: 8 units Documented By: TMD Co-signed By: MANUEL Nitroglycerin (Nitroglycerin 2% Ointment 30gm Tube) 0.5 inch EXT Q6 CORKY Stop: 12/22/21 17:29 Last Admin: 11/22/21 17:52 Dose: 0.5 inch Documented By: TRI Discontinued Medications Aspirin (Aspirin Chew 324 Mg) 324 mg PO NOW STA Stop: 11/22/21 16:34 Last Admin: 11/22/21 17:00 Dose: 324 mg Documented By: ES Morphine Sulfate (Morphine Sulfate 2 Mg/Ml Carp) 1 mg IV NOW STA Stop: 11/22/21 17:30 Last Admin: 11/22/21 17:52 Dose: 1 mg Documented By: TRI Nitroglycerin (Nitroglycerin Sl 0.4 Mg/Tab Tab) Confirm Administered Dose 0.4 mg .ROUTE .STK-MED ONE Stop: 11/22/21 16:58 Last Admin: 11/22/21 17:00 Dose: 0.4 mg Documented By: TRI Imaging Data Radiologist's Impression: Chest X-Ray 11/22/21 14:29 XR chest 2V PA/lateral CLINICAL HISTORY: Atypical chest pain. COMPARISON STUDY: Chest radiograph November 21, 2020. Chest CT December 28, 2017. FINDINGS: Lung volumes are normal. Lungs are clear. There is no pneumothorax or pleural effusion. Cardiac size is normal. Mediastinal contours are normal. There is no evidence for pulmonary edema. Azygos fissure is incidentally noted. IMPRESSION: No acute cardiopulmonary findings. ACT 112: Negative or not required by law. Electronically signed by: Ced Sparks M.D. 11/22/2021 3:04 PM Discharge Plan Visit Data Chief Complaint: Chest Pain Stated Complaint: CHEST PAIN, POSSIBLE HEART ATTACK ED Provider: Megan,Alexei T Discharge Problem: Chest pain, Diabetes mellitus Patient Disposition: Admitted As Inpatient Discharge Instructions Interventions: ED Discharge Assessment Last Done: 11/22/21 18:06
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
[2021-11-22] MEDS ORDERED: NITROGLYCERIN SL 0.4 MG/TAB TAB ONE (16:57)
[2021-11-22] MEDS ORDERED: MoRPHine SULFATE 2 MG/ML CARP IV STA (17:29)
[2021-11-22] MEDS: NITROGLYCERIN 2% OINTMENT 30GM TUBE EXT SCH (17:52)
[2021-11-22 17:57] LABS: D Dimer 480 ug/L FEU (0-500)
[2021-11-22] MEDS ORDERED: GLUCOSE 10 TAB/TUBE PO PRN (19:06)
[2021-11-22] MEDS ORDERED: POLYETHYLENE (MIRALAX) 17 GM PACK PO PRN (19:06)
[2021-11-22] MEDS ORDERED: GLUCAGON FOR INJ 1 MG VIAL SQ PRN (19:06)
[2021-11-22] MEDS ORDERED: GLUCOSE 40% GEL 15 GM TUBE PO PRN (19:06)
[2021-11-22] MEDS ORDERED: ONDANSETRON INJ 2 MG/ML 2 ML VIAL IV PRN (19:06)
[2021-11-22] MEDS ORDERED: DEXTROSE 50% 50 ML SYRINGE IV PRN (19:06)
[2021-11-22] MEDS ORDERED: CARBOHYDRATES FOR HYPOGLYCEMIA PO PRN (19:06)
[2021-11-22] MEDS ORDERED: ENOXAPARIN INJ 40 MG/0.4 ML SYR SQ SCH (19:45)
[2021-11-22] MEDS: INSULIN ASPART PER UNIT SC SCH (21:15)
[2021-11-22] MEDS: LANTUS PER UNIT CHARGE SQ SCH (21:15)
[2021-11-23] MEDS: NITROGLYCERIN 2% OINTMENT 30GM TUBE EXT SCH ×3 (00:04→11:53)
[2021-11-23] MEDS: ACETAMINOPHEN 325 MG TAB PO PRN ×2 (02:04→08:14)
[2021-11-23 07:09] LABS: Basophils # (auto) 0.06 K/uL (0-0.2); Basophils % (auto) 0.9 %; Eosinophils # (auto) 0.17 K/uL (0-0.50); Eosinophils % (auto) 2.6 %; Hematocrit (blood only) 38.3 % (40.1-51.0); Hemoglobin 13.1 g/dl (14.0-18.0); Immature Granulocytes # (auto) 0.02 K/uL (0.00-0.02); Immature Granulocytes % (auto) 0.3 %; Lymphocytes # (auto) 2.96 K/uL (1.2-3.4); Lymphocytes % (auto) 45.6 %; Mean Corpuscular Hemoglobin 29.2 pg (25.0-34.0); Mean Corpuscular Hgb Conc 34.2 g/dL (32.0-36.0); Mean Corpuscular Volume 85.3 fL (80.0-100.0); Mean Platelet Volume 9.1 fL (9.4-12.4); Monocytes # (auto) 0.68 K/uL (0.24-0.82); Monocytes % (auto) 10.5 %; Neutrophils % (auto) 40.1 %; Platelet Count 276 K/uL (130-400); RDW Coefficient of Variation 12.7 % (11.5-14.5); RDW Standard Deviation 39.1 fL (36.4-46.3); Red Blood Count 4.49 M/uL (4.63-6.08); White Blood Count 6.49 K/ul (4.8-10.8)
[2021-11-23 07:45] LABS: Calcium 9.1 mg/dl (8.5-10.1); Creatinine Clr Calc Pharmacy 95.6 ml/min; Est GFR (African American) 91.8 ml/min; Est GFR (Non-African American) 79.2 ml/min; Potassium 3.9 mmol/L (3.5-5.1)
[2021-11-23] MEDS ORDERED: PERFLUTREN LIPID MICROSPHERE (DEFINITY) IV ONE (07:45)
[2021-11-23 07:52] LABS: Estimated Average Glucose 192 mg/dl; Hemoglobin A1C 8.3 % (4.5-5.6)
[2021-11-23] MEDS: LANTUS PER UNIT CHARGE SQ SCH (07:58)
[2021-11-23] MEDS: INSULIN ASPART PER UNIT SC SCH ×2 (07:58→12:19)
[2021-11-23] MEDS ORDERED: buPROPion XL 150 MG TABCR PO SCH (09:00)
[2021-11-23] MEDS ORDERED: NON-FORMULARY MEDICATION (Dutasteride [Avodart] 0.5 mg capsule) PO SCH (09:00)
[2021-11-23] MEDS ORDERED: CITALOPRAM 20 MG TAB PO SCH (09:00)
--- NOTE | 2021-11-23 09:23 | XCELERA ---
[id number]
--- NOTE | 2021-11-23 13:34 | Cardiology Consultation ---
Date of Consultation November 23, 2021 Assessment & Plan (1) Chest pain: (2) CASTILLO (dyspnea on exertion): (3) Weight gain: (4) Diabetes mellitus: Plan 66-year-old man with multiple vascular risk factors presenting with nonspecific symptoms, benign ECG, and normal cardiac enzymes. Subsequent stress test today showed no evidence of inducible myocardial ischemia, suggesting an absence of clinically significant stenoses which would require revascularization, however continued risk factor management is appropriate. As such, unless contraindicated likely he should be on a statin (regardless of lipid profile given his diabetes) and aspirin 81 mg daily. He could also be considered for an REBEKAH inhibitor or ARB if he demonstrates hypertension as an outpatient. Did recommend regular aerobic exercise and weight loss. He does not need routine cardiology follow-up at this point, defer to his primary care physician to address vascular risk factors in an ongoing fashion. History of Present Illness Reason for Consultation: Vascular risk factor/chest discomfort Requesting Physician: Yan Wheatley MD Attending Physician: Yan Wheatley MD History of Present Illness 66-year-old man with multiple vascular risk factors (DM, dyslipidemia, age, obesity) but no known coronary artery disease who had COVID several months ago and noted subsequent weight gain with progressive dyspnea on exertion as well as intermittent chest fullness. Although he clearly notes dyspnea on lesser degrees of exertion than in the past, when discussing his symptoms with me he noted that his chest fullness would often occur at rest and did not actually change with activity. His ECG was unremarkable, cardiac enzymes were negative, and he felt well. This morning he underwent a stress echocardiogram where he walked for 5 minutes on a Luther protocol achieving 85% maximum predicted heart rate with no chest symptoms, no ST deviation, and no echocardiographic wall motion abnormalities at rest or post exercise. He was anxious to return home and tow picker his exercise program (which he had a banded due to concerns about his symptoms). He noted no symptoms at the time of my evaluation today. Allergies Allergy/AdvReac Type Severity Reaction Status Date / Time alfuzosin Allergy Mild ITCHING Verified 11/22/21 17:43 lidocaine Allergy Mild TACHYCARDIA Verified 11/22/21 17:43 tamsulosin Allergy Mild ITCHING Verified 11/22/21 17:43 amoxicillin AdvReac Mild NAUSEA AND Verified 11/22/21 17:43 VOMITING ciprofloxacin AdvReac Mild NAUSEA ND Verified 11/22/21 17:43 VMITING clavulanic acid AdvReac Mild NAUSEA AND Verified 11/22/21 17:43 VOMITING Home Medications Medication Instructions Recorded Confirmed Type bupropion HCl 150 mg 24 hr tablet, 150 mg PO QAM 12/08/18 11/22/21 History extended release flaxseed oil 1,000 mg capsule 1,000 mg PO QAM 12/08/18 11/22/21 History turmeric 400 mg capsule 400 mg PO DAILY 12/08/18 11/22/21 History insulin glargine 100 unit/mL (3 15 - 18 unit subcut HS 02/16/19 11/22/21 History mL) subcutaneous pen (Basaglar KwikPen U-100 Insulin) insulin aspart U-100 100 unit/mL 0 sliding scale dose subcut AC 05/26/19 11/22/21 History (3 mL) subcutaneous pen (Novolog sliding scale Flexpen U-100 Insulin aspart) cholecalciferol (vitamin D3) 125 5,000 unit PO 3XWK 11/17/19 11/22/21 History mcg (5,000 unit) tablet (Vitamin D3) dutasteride 0.5 mg capsule 0.5 mg PO DAILY #90 caps 06/06/20 11/22/21 Rx (Avodart) cholecalciferol (vitamin D3) 125 10,000 unit PO 4XWK 11/22/21 11/22/21 History mcg (5,000 unit) tablet (Vitamin D3) citalopram 20 mg tablet 20 mg PO DAILY 11/22/21 11/22/21 History omega 4-eur-meq-fish oil 300 1 cap PO DAILY 11/22/21 11/22/21 History mg-1,000 mg capsule (Fish Oil) pantoprazole 40 mg tablet,delayed 40 mg PO DAILYBD #30 tabs 11/23/21 Rx release Patient History Medical History Bladder cancer diagnosed 11/2016--s/p BCG treatments Chronic back pain Depression Diabetes mellitus IDDM Hematuria History of COVID-19 diagnosed 11/2019--muscle aches/headaches History of nephrolithiasis Testicular pain Surgical History H/O hemorrhoidectomy History of colonoscopy History of hand surgery right hand pinky History of sinus surgery x3 History of wisdom tooth extraction S/P bladder tumor excision with fulguration Status post bilateral hernia repair Family History Other No significant family history Denies family history of No family history of adverse response to anesthesia No family history of bleeding disorder Heart disease Allergies Cancer Hypertension Stroke Asthma Social History Smoking Status: Former smoker Second Hand Exposure: No; Hx Alcohol Use: Yes Alcohol type: wine and hard liquor Hx Substance Use: No Preferred Language: Cambodian Communication Ability: Effective Visual Impairment: No Limitations Hearing Ability: Normal Weight Clerk Required: No Beliefs That Will Affect Care: None marital status: Current Living Situation: Spouse Current Living Situation Comment: current occupational status: employed current occupation: Social Service Liaison Feels Safe at Home: Yes Assistive Devices: Glasses and Hearing Aid - Bilateral Physical Exam Physical Exam: Adult white male in no distress. Weight 250 pounds. BP mildly hypertensive. Pulse 78 bpm and regular. Skin: no ecchymoses or generalized lesions. HEENT: unremarkable. Neck: Jugular venous pulse normal, no carotid bruits. Lungs: clear and equal breath sounds bilaterally. No wheezing or crackles. Cardiac: Faint heart tones, regular rhythm, normal S1 and S2 with no obvious murmur or gallop. Abdomen: benign. Extremities: no edema, pulses intact. Neurologic: Pleasant affect and conversation, nonfocal. Results & Data ([facility]) Vital Signs (Past 12 Hours) Vital Signs Temp Pulse Pulse Resp BP BP Pulse Ox 11/23/21 11:55 97.9 F 78 19 143/84 H 96 11/23/21 08:25 97.7 F 68 21 124/79 96 11/23/21 07:12 63 11/23/21 05:17 89 11/23/21 03:22 97.7 F 72 18 106/66 97 O2 Del Method 11/23/21 11:55 Room Air 11/23/21 08:25 Room Air 11/23/21 07:12 11/23/21 05:17 11/23/21 03:22 Room Air Laboratory Results High-sensitivity troponin varied from 4-8. Normal electrolytes, BUN 18, creatinine 1.0. Diagnostic Findings ECG on admission showed sinus rhythm with normal ST segments. Echocardiogram showed EF 55 to 60% with mild LVH, grade 1 diastolic dysfunction, mildly dilated right ventricle with normal RVSP, no significant valvular disease. Unchanged from 2013 study. Stress echo showed no exercise-induced wall motion abnormalities. Chest x-ray showed no acute findings. PG Care Time/CCT Total # of Minutes Spent Total Time Spent with Patient: Total time spent is greater than 50% in coordination of care (as documented) at patient's floor/unit and/or counseling patient: Coding Level of Care Code 93502 Inpt Consult Level 4 Diagnoses Chest pain R07.9 Chest pain type: unspecified CASTILLO (dyspnea on exertion) R06.09 Weight gain R63.5 Diabetes mellitus E11.9 (1) Chest pain Chest pain type: unspecified Qualified Code(s): R07.9 - Chest pain, unspecified
--- NOTE | 2021-11-23 13:40 | XCELERA ---
[id number]
--- NOTE | 2021-11-23 14:35 | Electrocardiogram Report ---
Test Reason : Blood Pressure : / mmHG Vent. Rate : 083 BPM Atrial Rate : 083 BPM P-R Int : 188 ms QRS Dur : 084 ms QT Int : 378 ms P-R-T Axes : 052 014 060 degrees QTc Int : 444 ms Normal sinus rhythm Normal ECG When compared with ECG of 17-NOV-2019 12:35, Criteria for Inferior infarct are no longer Present Confirmed by Keith Skinner ([id number]) on 11/23/2021 2:34:53 PM Referred By: Confirmed By:Keith Skinner
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
== END 2021-11-23 14:07 | disposition home or self-care (01) ==
LOC: 2N 14:25 → ED 14:25 → SUATTDRO 16:49 → 2N 18:06